=== PATIENT | male | born 1975 | race Caucasian/White ===

== ENCOUNTER 2022-11-18 11:48 | Observation (INO) | payer OTHER ==
[2022-11-18 11:55] VITALS: BMI 29.8
[2022-11-18] MEDS ORDERED: GLUCAGON 1 MG KIT IVPUSH ONE (12:06)
[2022-11-18] MEDS ORDERED: GLUCAGON 1 MG KIT ONE (12:36)
[2022-11-18 13:19] LABS: BASO % 0.7 % (0-2.0); EOS % 1.4 % (0-4.5); HEMATOCRIT 48.3 % (35.4-49); HEMOGLOBIN 16.6 GM/dL (11.7-16.9); LYMPH % 22.7 % (8-40); MCH 29.6 pg (25.7-33.7); MCHC 34.4 g/dl (32.0-35.9); MEAN CELL VOLUME 86.1 fl (80-96); MEAN PLT VOLUME 9.7 fl (7.5-11.1); NEUT % 70.2 % (42.8-82.8); PLATELET COUNT 204 10^3/uL (134-434); RBC 5.61 M/mm3 (4.00-5.60); WHITE BLOOD COUNT 8.6 K/mm3 (4.0-10.0)
[2022-11-18 13:33] LABS: ACTIVATED PTT 37.3 SECONDS (25.2-36.5); INR 1.03 (0.83-1.09)
[2022-11-18 13:42] LABS: CALCIUM 9.7 mg/dL (8.5-10.1)
[2022-11-18 13:43] LABS: ALBUMIN 4.1 g/dl (3.4-5.0)
[2022-11-18 13:47] LABS: TOT PROT 7.8 g/dl (6.4-8.2)
[2022-11-18 14:04] LABS: BLOOD UREA NITROGEN 16.2 mg/dL (7-18)
[2022-11-18 14:09] LABS: BILIRUBIN,TOTAL 0.5 mg/dL (0.2-1)
[2022-11-18] MEDS ORDERED: SODIUM CHLORIDE 0.9% 1000 ML INFUS.BAG IV ONE (15:51)
[2022-11-18] MEDS ORDERED: FENTANYL CITRATE/PF 50 MCG/ML VIAL ONE (18:10)
[2022-11-18] MEDS ORDERED: SODIUM CHLORIDE 1,000 ML IV SCH (18:45)
[2022-11-18] MEDS ORDERED: ONDANSETRON 4 MG/2 ML VIAL IVPUSH PRN (19:15)
[2022-11-18] MEDS ORDERED: LACTATED RINGERS SOLUTION 1,000 ML IV SCH (19:15)
[2022-11-18] MEDS ORDERED: oxyCODONE HCL 5 MG TABLET PO PRN (19:15)
[2022-11-19 02:50] VITALS: RESP 20
[2022-11-19 07:06] LABS: BASO % 0.4 % (0-2.0); EOS % 1.7 % (0-4.5); HEMATOCRIT 44.3 % (35.4-49); HEMOGLOBIN 15.2 GM/dL (11.7-16.9); LYMPH % 31.9 % (8-40); MCH 29.6 pg (25.7-33.7); MCHC 34.3 g/dl (32.0-35.9); MEAN CELL VOLUME 86.4 fl (80-96); MEAN PLT VOLUME 9.8 fl (7.5-11.1); MONO % 6.3 % (3.8-10.2); NEUT % 59.7 % (42.8-82.8); PLATELET COUNT 188 10^3/uL (134-434); RBC 5.13 M/mm3 (4.00-5.60); RDW 12.9 % (11.9-15.9); WHITE BLOOD COUNT 9.6 K/mm3 (4.0-10.0)
[2022-11-19 07:16] LABS: ACTIVATED PTT 32.4 SECONDS (25.2-36.5)
[2022-11-19 07:18] LABS: INR 1.1 (0.83-1.09); PROTHROMBIN TIME (PATIENT) 12.8 SEC (9.7-13.0)
[2022-11-19 07:29] LABS: CALCIUM 8.7 mg/dL (8.5-10.1)
[2022-11-19 07:30] LABS: ALBUMIN 3.5 g/dl (3.4-5.0); BLOOD UREA NITROGEN 17.6 mg/dL (7-18)
[2022-11-19 07:31] VITALS: BP 143/77; PULSE 66; TEMP 98.4
[2022-11-19 07:33] LABS: CREATININE 0.9 mg/dL (0.55-1.3); PHOSPHOROUS 3.2 mg/dL (2.5-4.9)
[2022-11-19 07:35] LABS: BILIRUBIN,TOTAL 0.8 mg/dL (0.2-1); TOT PROT 6.5 g/dl (6.4-8.2)
== END 2022-11-19 09:55 | disposition left against medical advice (07) ==
LOC: JER 11:48 → JERBED 17:07
PROVIDERS: ADMIT Internal Medicine
PROC: 3E0337Z Introduction of Electrolytic and Water Balance Substance into Peripheral Vein, Percutaneous Approach (ICD-10-PCS; 2022-11-18)
PROC: 0DC98ZZ Extirpation of Matter from Duodenum, Via Natural or Artificial Opening Endoscopic (ICD-10-PCS; 2022-11-18)
PROC: 3E033GC Introduction of Other Therapeutic Substance into Peripheral Vein, Percutaneous Approach (ICD-10-PCS; principal; 2022-11-18 18:00)
DX: T18.128A Food in esophagus causing other injury, initial encounter (principal); R13.10 Dysphagia, unspecified; K20.0 Eosinophilic esophagitis; E11.9 Type 2 diabetes mellitus without complications; Y99.8 Other external cause status
CPT/HCPCS: 36415; 70490-TC; 71250-TC; 74220-TC-FY; 74240-TC-FY; 80053; 83036; 83735; 84100; 85025; 85610; 85730; 86140; 86850; 86900; 86901; 93005; 93010; 94760; 99285-25; G0378